=== PATIENT | female | born 1940 | race African-American/Black ===

== ENCOUNTER 2017-11-23 21:18 | Inpatient (IN) ==
--- NOTE | 2017-11-23 21:39 | ED ---
HPI General Chief complaint: Syncope Stated complaint: near syncope/evac Time Seen by Provider: 11/23/17 21:35 Source: patient, family and EMS Mode of arrival: EMS Limitations: no limitations History of Present Illness HPI narrative: The patient is a 76 year old female who presents to the [facility] emergency department with a history of not feeling well since yesterday. The patient reports having generalized weakness, urinary frequency, and urinary incontinence. She denies having any dysuria. She reports that she has had associated urinary urgency. According to ambulance services, the patient was out with her family eating dinner at a local restaurant when she developed a near syncopal event in the bathroom. The family thought that this may be related to a low blood sugar as she has not been eating well today, however she did have her dinner. They did provide orange juice and the patient's blood sugar was noted by ambulance services to be 209 prior to arrival. The patient was noted to be tachycardic with a pulse of 110. The patient had an odor of strong smelling urine about her. She denies having any one-sided weakness, numbness or tingling of her extremities. She denies having any vision changes, vertigo, or facial droop. On arrival, the patient's heart rate is in the 1 teens, the patient's temperature is noted to be 103. On review of systems otherwise, the patient denies having any cough, congestion, neck pain, chest pain, shortness of breath, abdominal pain, vomiting, diarrhea, or other neurologic symptoms. The patient reports that she last moved her bowels yesterday. She denies having any blood in her stool or black or tarry stools. Related Data Home Medications Medication Instructions Recorded Confirmed Unable to Obtain Home Meds 11/23/17 11/23/17 Previous Rx's Medication Instructions Recorded ciprofloxacin [Cipro] 250 mg PO BID 5 Days ml 11/25/17 Allergies Allergy/AdvReac Type Severity Reaction Status Date / Time No Known Allergies Allergy Verified 11/23/17 21:50 Review of Systems ROS: all other systems reviewed are negative (Except for that which was mentioned in the HPI.) PMF Family History Family History Other Diabetes mellitus Hypertension Social History Social History Substance History: No History of Abuse Second Hand Smoke Exposure: No Smoking Status: Never smoker How Often Do You Have a Drink Containing Alcohol: Never Recent Travel in [facility] within the Last 8 Weeks: No Recent Out of Country Travel within the Last 8 Weeks: No Exam Const General: cooperative, no acute distress and well developed Nutritional Appearance: well nourished Orientation: alert, awake and oriented x3 [facility] Head: normocephalic and atraumatic Nose: no nasal discharge and no epistaxis Mouth: moist mucous membranes Throat: posterior oropharynx normal and uvula midline Eyes Sclera: normal sclerae Pupils: PERRL Neck Neck: no meningeal signs, trachea midline and no JVD Resp Effort & Inspection: no use of accessory muscles Auscultation: clear to auscultation bilaterally Cardio Rate: tachycardic (Sinus tachycardia in the 1 teens. No pulse deficits to the extremities on simultaneous auscultation and palpation of her radial artery) Rhythm: regular rhythm Heart Sounds: no gallops, no murmurs and no rubs GI Inspection: non-distended Palpation: soft, no hepatosplenomegaly and nontender Auscultation: normal bowel sounds Back/Spine/Pelvis Back: no CVA tenderness Skin General: dry skin (warm) Neuro General: alert, awake, oriented x3 and CN's II-XI intact bilaterally Speech: speech normal Motor: strength not 5/5 throughout (Strength is 4/5 in all 4 extremities related to a generalized weakness.) and no movement abnormalities noted Sensory Exam: no sensory deficits noted Extrem General: normal to inspection (No calf tenderness on palpation. Negative Homans sign. No palpable cords. 2+ pulses in all 4 extremities.), no clubbing , no cyanosis and edema (Trace pedal edema bilaterally.) Laterality: bilaterally Psych Mood: congruent mood Affect: normal affect Judgment: judgment good Course Reevaluation(s) Reevaluation #1: The patient on reevaluation was resting comfortably and feeling improved. Consultations Consultation #1: The patient's case including history, pertinent physical examination findings, and laboratory studies were discussed with Dr. Norman. It was agreed that the patient would be admitted to the hospitalist service. Initial Documented Vital Signs Temperature 103.0 F H 11/23/17 21:39 Pulse Rate 117 H 11/23/17 21:39 Respiratory Rate 20 11/23/17 21:39 Blood Pressure 185/88 H 11/23/17 21:39 Pulse Oximetry 95 11/23/17 21:39 Last Documented Vital Signs Temperature 98.8 F 11/25/17 12:00 Pulse Rate 79 11/25/17 12:00 Respiratory Rate 16 11/25/17 12:00 Blood Pressure 136/68 11/25/17 12:00 Pulse Oximetry 99 11/25/17 12:00 Medical Decision Making MDM Narrative Medical decision making narrative: During the course of the patient's emergency department visit, the patient's history, examination, and differential diagnosis were reviewed with the patient. The patient was placed on a phototypesetting equipment monitor with oximetry and frequent blood pressure monitoring. The patient had IV access obtained and blood work sent for analysis. A diagnostic evaluation was started regarding this patient's febrile illness, near syncope, urinary symptoms. The patient was initially provided Tylenol for fever, normal saline IV fluids. The patient's diagnostic evaluation is remarkable for a white count of 10.9, neutrophil predominance at 80.9, platelets within normal limits, initial hemoglobin is 11., PT PTT unremarkable, chemistry is remarkable for a glucose of 260, chloride is 105, lactic acid is noted to be elevated at 2.4 suspicious for sepsis, troponin I is less than 0.02, urinalysis shows positive nitrite few mucus large leukocyte esterase cloudy urine rare bacteria. The patient was started on antibiotic, blood cultures 2 were drawn prior to antibiotic administration. The patient's results were discussed with the patient, including the plan of care. I explained that further testing and/ or monitoring is indicated based on the patient's history, examination, and/ or laboratory findings. Therefore, I recommended admission for additional evaluation. The patient expressed understanding and was agreeable with this plan. The patient was admitted to the hospital in guarded condition and sent to a bed under the care of the [facility] service. Differential Diagnosis Differential Diagnosis: Urosepsis, versus pyelonephritis, versus pneumonia, versus sepsis of undetermined cause Medical Records Medical records reviewed: Yes I reviewed the patient's medical records. Lab Data Lab results reviewed: Yes I reviewed the patient's lab results. Result diagrams: 11/25/17 04:11 11/25/17 09:05 Lab Results 11/23/17 11/23/17 11/23/17 Range/Units 22:00 22:00 22:00 WBC 10.9 (4.0-11.0) th/mm3 RBC 4.04 (4.00-5.30) mil/mm3 Hgb 11.0 L (11.6-15.3) gm/dL Hct 33.9 L (35.0-46.0) % MCV 83.9 (80.0-100.0) fL MCH 27.4 (27.0-34.0) pg MCHC 32.6 (32.0-36.0) % RDW 16.0 (11.6-17.2) % Plt Count 281 (150-450) th/mm3 MPV 9.0 (7.0-11.0) fL Neut % (Auto) 80.9 H (16.0-70.0) % Lymph % (Auto) 12.8 (9.0-44.0) % [place] % (Auto) 5.2 (0.0-8.0) % Eos % (Auto) 0.6 (0.0-4.0) % Baso % (Auto) 0.5 (0.0-2.0) % Neut # (Auto) 8.8 H (1.8-7.7) th/mm3 Lymph # (Auto) 1.4 (1.0-4.8) th/mm3 [place] # (Auto) 0.6 (0.0-0.9) th/mm3 Eos # (Auto) 0.1 (0.0-0.4) th/mm3 Baso # (Auto) 0.1 (0.0-0.2) th/mm3 WBC Differential . Differential Comment Auto diff final PT 10.3 (9.8-11.6) sec INR 1.0 Ratio APTT 23.8 L (24.3-30.1) sec Sodium 140 (136-145) meq/L Potassium 4.5 (3.5-5.1) meq/L Chloride 105 (98-107) meq/L Carbon Dioxide 24.7 (21.0-32.0) meq/L Anion Gap 10 (5-15) meq/L BUN 19 H (7-18) mg/dL Creatinine 1.12 H (0.50-1.00) mg/dL Estimated GFR 57 L (>89) mL/min POC Glucose (68-110) mg/dl Random Glucose 260 H (74-106) mg/dL Lactic Acid (0.4-2.0) mmol/L Calcium 10.2 H (8.5-10.1) mg/dL Magnesium 1.8 (1.5-2.5) mg/dL Total Bilirubin 0.7 (0.2-1.0) mg/dL AST 22 (15-37) U/L ALT 24 (10-53) U/L Alkaline Phosphatase 57 (45-117) U/L Total Creatine Kinase 64 (26-192) U/L Troponin I Less than 0.02 L (0.02-0.05) ng/mL Total Protein 8.0 (6.4-8.2) g/dL Albumin 3.9 (3.4-5.0) g/dL Urine Color (Yellw/Straw) Urine Clarity (Clear) Urine pH (5.0-8.5) Ur Specific [place] (1.002-1.035) Urine Protein (Neg-Trace) mg/dL Urine Glucose (UA) (Negative) mg/dL Urine Ketones (Negative) mg/dL Urine Occult Blood (Negative) Urine Nitrate (Negative) Urine Bilirubin (Negative) Urine Urobilinogen (Less than 2) mg/dL Ur Leukocyte Esterase (Negative) Urine RBC (0-3) /hpf Urine WBC (0-5) /hpf Ur Squamous Epith Cells (0-5) /hpf Urine Bacteria (None) /hpf Urine Mucus (Occasional) /lpf Micro UA Comment Urine Culture Comments 11/23/17 11/23/17 11/24/17 Range/Units 22:25 22:45 00:24 WBC (4.0-11.0) th/mm3 RBC (4.00-5.30) mil/mm3 Hgb (11.6-15.3) gm/dL Hct (35.0-46.0) % MCV (80.0-100.0) fL MCH (27.0-34.0) pg MCHC (32.0-36.0) % RDW (11.6-17.2) % Plt Count (150-450) th/mm3 MPV (7.0-11.0) fL Neut % (Auto) (16.0-70.0) % Lymph % (Auto) (9.0-44.0) % [place] % (Auto) (0.0-8.0) % Eos % (Auto) (0.0-4.0) % Baso % (Auto) (0.0-2.0) % Neut # (Auto) (1.8-7.7) th/mm3 Lymph # (Auto) (1.0-4.8) th/mm3 [place] # (Auto) (0.0-0.9) th/mm3 Eos # (Auto) (0.0-0.4) th/mm3 Baso # (Auto) (0.0-0.2) th/mm3 WBC Differential Differential Comment PT (9.8-11.6) sec INR Ratio APTT (24.3-30.1) sec Sodium (136-145) meq/L Potassium (3.5-5.1) meq/L Chloride (98-107) meq/L Carbon Dioxide (21.0-32.0) meq/L Anion Gap (5-15) meq/L BUN (7-18) mg/dL Creatinine (0.50-1.00) mg/dL Estimated GFR (>89) mL/min POC Glucose 195 H (68-110) mg/dl Random Glucose (74-106) mg/dL Lactic Acid 2.4 H (0.4-2.0) mmol/L Calcium (8.5-10.1) mg/dL Magnesium (1.5-2.5) mg/dL Total Bilirubin (0.2-1.0) mg/dL AST (15-37) U/L ALT (10-53) U/L Alkaline Phosphatase (45-117) U/L Total Creatine Kinase (26-192) U/L Troponin I (0.02-0.05) ng/mL Total Protein (6.4-8.2) g/dL Albumin (3.4-5.0) g/dL Urine Color Yellow (Yellw/Straw) Urine Clarity Cloudy H (Clear) Urine pH 6.0 (5.0-8.5) Ur Specific [place] 1.009 (1.002-1.035) Urine Protein 30 H (Neg-Trace) mg/dL Urine Glucose (UA) 500 or greater (Negative) mg/dL Urine Ketones Negative (Negative) mg/dL Urine Occult Blood Small H (Negative) Urine Nitrate Positive H (Negative) Urine Bilirubin Negative (Negative) Urine Urobilinogen Less than 2 (Less than 2) mg/dL Ur Leukocyte Esterase Large H (Negative) Urine RBC 1 (0-3) /hpf Urine WBC 92 H (0-5) /hpf Ur Squamous Epith Cells <1 (0-5) /hpf Urine Bacteria Rare H (None) /hpf Urine Mucus Few H (Occasional) /lpf Micro UA Comment Culture indicated Urine Culture Comments Culture indicated 11/24/17 11/24/17 11/24/17 Range/Units 01:47 02:45 08:34 WBC (4.0-11.0) th/mm3 RBC (4.00-5.30) mil/mm3 Hgb (11.6-15.3) gm/dL Hct (35.0-46.0) % MCV (80.0-100.0) fL MCH (27.0-34.0) pg MCHC (32.0-36.0) % RDW (11.6-17.2) % Plt Count (150-450) th/mm3 MPV (7.0-11.0) fL Neut % (Auto) (16.0-70.0) % Lymph % (Auto) (9.0-44.0) % [place] % (Auto) (0.0-8.0) % Eos % (Auto) (0.0-4.0) % Baso % (Auto) (0.0-2.0) % Neut # (Auto) (1.8-7.7) th/mm3 Lymph # (Auto) (1.0-4.8) th/mm3 [place] # (Auto) (0.0-0.9) th/mm3 Eos # (Auto) (0.0-0.4) th/mm3 Baso # (Auto) (0.0-0.2) th/mm3 WBC Differential Differential Comment PT (9.8-11.6) sec INR Ratio APTT (24.3-30.1) sec Sodium (136-145) meq/L Potassium (3.5-5.1) meq/L Chloride (98-107) meq/L Carbon Dioxide (21.0-32.0) meq/L Anion Gap (5-15) meq/L BUN (7-18) mg/dL Creatinine (0.50-1.00) mg/dL Estimated GFR (>89) mL/min POC Glucose 178 H 182 H (68-110) mg/dl Random Glucose (74-106) mg/dL Lactic Acid 0.9 (0.4-2.0) mmol/L Calcium (8.5-10.1) mg/dL Magnesium (1.5-2.5) mg/dL Total Bilirubin (0.2-1.0) mg/dL AST (15-37) U/L ALT (10-53) U/L Alkaline Phosphatase (45-117) U/L Total Creatine Kinase (26-192) U/L Troponin I (0.02-0.05) ng/mL Total Protein (6.4-8.2) g/dL Albumin (3.4-5.0) g/dL Urine Color (Yellw/Straw) Urine Clarity (Clear) Urine pH (5.0-8.5) Ur Specific [place] (1.002-1.035) Urine Protein (Neg-Trace) mg/dL Urine Glucose (UA) (Negative) mg/dL Urine Ketones (Negative) mg/dL Urine Occult Blood (Negative) Urine Nitrate (Negative) Urine Bilirubin (Negative) Urine Urobilinogen (Less than 2) mg/dL Ur Leukocyte Esterase (Negative) Urine RBC (0-3) /hpf Urine WBC (0-5) /hpf Ur Squamous Epith Cells (0-5) /hpf Urine Bacteria (None) /hpf Urine Mucus (Occasional) /lpf Micro UA Comment Urine Culture Comments 11/24/17 11/24/17 11/24/17 Range/Units 12:42 18:10 21:17 WBC (4.0-11.0) th/mm3 RBC (4.00-5.30) mil/mm3 Hgb (11.6-15.3) gm/dL Hct (35.0-46.0) % MCV (80.0-100.0) fL MCH (27.0-34.0) pg MCHC (32.0-36.0) % RDW (11.6-17.2) % Plt Count (150-450) th/mm3 MPV (7.0-11.0) fL Neut % (Auto) (16.0-70.0) % Lymph % (Auto) (9.0-44.0) % [place] % (Auto) (0.0-8.0) % Eos % (Auto) (0.0-4.0) % Baso % (Auto) (0.0-2.0) % Neut # (Auto) (1.8-7.7) th/mm3 Lymph # (Auto) (1.0-4.8) th/mm3 [place] # (Auto) (0.0-0.9) th/mm3 Eos # (Auto) (0.0-0.4) th/mm3 Baso # (Auto) (0.0-0.2) th/mm3 WBC Differential Differential Comment PT (9.8-11.6) sec INR Ratio APTT (24.3-30.1) sec Sodium (136-145) meq/L Potassium (3.5-5.1) meq/L Chloride (98-107) meq/L Carbon Dioxide (21.0-32.0) meq/L Anion Gap (5-15) meq/L BUN (7-18) mg/dL Creatinine (0.50-1.00) mg/dL Estimated GFR (>89) mL/min POC Glucose 214 H 145 H 169 H (68-110) mg/dl Random Glucose (74-106) mg/dL Lactic Acid (0.4-2.0) mmol/L Calcium (8.5-10.1) mg/dL Magnesium (1.5-2.5) mg/dL Total Bilirubin (0.2-1.0) mg/dL AST (15-37) U/L ALT (10-53) U/L Alkaline Phosphatase (45-117) U/L Total Creatine Kinase (26-192) U/L Troponin I (0.02-0.05) ng/mL Total Protein (6.4-8.2) g/dL Albumin (3.4-5.0) g/dL Urine Color (Yellw/Straw) Urine Clarity (Clear) Urine pH (5.0-8.5) Ur Specific [place] (1.002-1.035) Urine Protein (Neg-Trace) mg/dL Urine Glucose (UA) (Negative) mg/dL Urine Ketones (Negative) mg/dL Urine Occult Blood (Negative) Urine Nitrate (Negative) Urine Bilirubin (Negative) Urine Urobilinogen (Less than 2) mg/dL Ur Leukocyte Esterase (Negative) Urine RBC (0-3) /hpf Urine WBC (0-5) /hpf Ur Squamous Epith Cells (0-5) /hpf Urine Bacteria (None) /hpf Urine Mucus (Occasional) /lpf Micro UA Comment Urine Culture Comments 11/25/17 11/25/17 11/25/17 Range/Units 04:11 05:17 08:27 WBC 7.9 (4.0-11.0) th/mm3 RBC 3.68 L (4.00-5.30) mil/mm3 Hgb 10.1 L (11.6-15.3) gm/dL Hct 30.4 L (35.0-46.0) % MCV 82.6 (80.0-100.0) fL MCH 27.5 (27.0-34.0) pg MCHC 33.3 (32.0-36.0) % RDW 15.7 (11.6-17.2) % Plt Count 231 (150-450) th/mm3 MPV 8.4 (7.0-11.0) fL Neut % (Auto) 59.2 (16.0-70.0) % Lymph % (Auto) 30.0 (9.0-44.0) % [place] % (Auto) 8.5 H (0.0-8.0) % Eos % (Auto) 2.0 (0.0-4.0) % Baso % (Auto) 0.3 (0.0-2.0) % Neut # (Auto) 4.7 (1.8-7.7) th/mm3 Lymph # (Auto) 2.4 (1.0-4.8) th/mm3 [place] # (Auto) 0.7 (0.0-0.9) th/mm3 Eos # (Auto) 0.2 (0.0-0.4) th/mm3 Baso # (Auto) 0.0 (0.0-0.2) th/mm3 WBC Differential . Differential Comment Auto diff final PT (9.8-11.6) sec INR Ratio APTT (24.3-30.1) sec Sodium (136-145) meq/L Potassium (3.5-5.1) meq/L Chloride (98-107) meq/L Carbon Dioxide (21.0-32.0) meq/L Anion Gap (5-15) meq/L BUN (7-18) mg/dL Creatinine (0.50-1.00) mg/dL Estimated GFR (>89) mL/min POC Glucose 124 H 199 H (68-110) mg/dl Random Glucose (74-106) mg/dL Lactic Acid (0.4-2.0) mmol/L Calcium (8.5-10.1) mg/dL Magnesium (1.5-2.5) mg/dL Total Bilirubin (0.2-1.0) mg/dL AST (15-37) U/L ALT (10-53) U/L Alkaline Phosphatase (45-117) U/L Total Creatine Kinase (26-192) U/L Troponin I (0.02-0.05) ng/mL Total Protein (6.4-8.2) g/dL Albumin (3.4-5.0) g/dL Urine Color (Yellw/Straw) Urine Clarity (Clear) Urine pH (5.0-8.5) Ur Specific [place] (1.002-1.035) Urine Protein (Neg-Trace) mg/dL Urine Glucose (UA) (Negative) mg/dL Urine Ketones (Negative) mg/dL Urine Occult Blood (Negative) Urine Nitrate (Negative) Urine Bilirubin (Negative) Urine Urobilinogen (Less than 2) mg/dL Ur Leukocyte Esterase (Negative) Urine RBC (0-3) /hpf Urine WBC (0-5) /hpf Ur Squamous Epith Cells (0-5) /hpf Urine Bacteria (None) /hpf Urine Mucus (Occasional) /lpf Micro UA Comment Urine Culture Comments 11/25/17 Range/Units 09:05 WBC (4.0-11.0) th/mm3 RBC (4.00-5.30) mil/mm3 Hgb (11.6-15.3) gm/dL Hct (35.0-46.0) % MCV (80.0-100.0) fL MCH (27.0-34.0) pg MCHC (32.0-36.0) % RDW (11.6-17.2) % Plt Count (150-450) th/mm3 MPV (7.0-11.0) fL Neut % (Auto) (16.0-70.0) % Lymph % (Auto) (9.0-44.0) % [place] % (Auto) (0.0-8.0) % Eos % (Auto) (0.0-4.0) % Baso % (Auto) (0.0-2.0) % Neut # (Auto) (1.8-7.7) th/mm3 Lymph # (Auto) (1.0-4.8) th/mm3 [place] # (Auto) (0.0-0.9) th/mm3 Eos # (Auto) (0.0-0.4) th/mm3 Baso # (Auto) (0.0-0.2) th/mm3 WBC Differential Differential Comment PT (9.8-11.6) sec INR Ratio APTT (24.3-30.1) sec Sodium 141 (136-145) meq/L Potassium 3.8 (3.5-5.1) meq/L Chloride 110 H (98-107) meq/L Carbon Dioxide 24.1 (21.0-32.0) meq/L Anion Gap 7 (5-15) meq/L BUN 9 (7-18) mg/dL Creatinine 0.66 (0.50-1.00) mg/dL Estimated GFR Greater than 89 (>89) mL/min POC Glucose (68-110) mg/dl Random Glucose 151 H D (74-106) mg/dL Lactic Acid (0.4-2.0) mmol/L Calcium 9.6 (8.5-10.1) mg/dL Magnesium (1.5-2.5) mg/dL Total Bilirubin (0.2-1.0) mg/dL AST (15-37) U/L ALT (10-53) U/L Alkaline Phosphatase (45-117) U/L Total Creatine Kinase (26-192) U/L Troponin I (0.02-0.05) ng/mL Total Protein (6.4-8.2) g/dL Albumin (3.4-5.0) g/dL Urine Color ([place]ell[place]/Straw) Urine Clarity (Clear) Urine pH (5.0-8.5) Ur Specific [place] (1.002-1.035) Urine Protein (Neg-Trace) mg/dL Urine Glucose (UA) (Negative) mg/dL Urine Ketones (Negative) mg/dL Urine Occult Blood (Negative) Urine Nitrate (Negative) Urine Bilirubin (Negative) Urine Urobilinogen (Less than 2) mg/dL Ur Leukocyte Esterase (Negative) Urine RBC (0-3) /hpf Urine WBC (0-5) /hpf Ur Squamous Epith Cells (0-5) /hpf Urine Bacteria (None) /hpf Urine Mucus (Occasional) /lpf Micro UA Comment Urine Culture Comments Imaging Data Radiologist's impression: Chest X-Ray 11/23/17 21:48 CONCLUSION: No acute cardiopulmonary disease identified. ECG Data Attestation: I personally reviewed and interpreted this ECG as follows: Interpretation: The patient had a EKG done on arrival. The patient's EKG shows a sinus tachycardia rate of 115, QRS duration 87 ms, QTC [address] -T wave abnormalities are noted, T waves are inverted in lead I, 2, 3, aVF, V4, V5, V6. Discharge Plan Discharge Disposition Patient Disposition: 30 Still Patient Discharge Condition Condition: Stable Discharge Order Discharge Orders: Discharge Order (Routine); Ordered 11/25/17 Ordered By: Kiki Martin Discharge Details Diagnosis: Near syncope, Acute pyelonephritis Physicians Team ED Provider: Padmini Diaz Attending Provider: Kiki Martin Status ED Status: Left Department Discharge Information Discharge Date/Time: 11/24/17 00:58
[2017-11-23] MEDS ORDERED: Acetaminophen 325 MG Tablet PO ONE (21:47)
[2017-11-23] MEDS ORDERED: Sod Chloride 0.9% Inj 1,000 ML IV.SIG ONE (21:47)
--- NOTE | 2017-11-23 22:11 | XR ---
EXAM DATE: 11/23/2017 10:08 PM EDT AGE/SEX: 76 years / Female INDICATIONS: Fever. Short of breath. CLINICAL DATA: This is the patient's initial encounter. Patient reports that signs and symptoms have been present for 1 day and indicates a pain score of 0/10. MEDICAL/SURGICAL HISTORY: None. None. COMPARISON: No prior exams available for comparison. FINDINGS: Single AP view of the chest. The lungs are clear. Cardiomediastinal silhouette within norm al limits. No evidence of pleural effusion or pneumothorax. CONCLUSION: No acute cardiopulmonary disease identified. Electronically signed by: Pedro Owen MD 11/23/2017 10:10 PM EDT
[2017-11-23 22:22] LABS: Baso # (Auto) 0.1 th/mm3 (0.0-0.2); Baso % (Auto) 0.5 % (0.0-2.0); Eos # (Auto) 0.1 th/mm3 (0.0-0.4); Eos % (Auto) 0.6 % (0.0-4.0); Hematocrit 33.9 % (35.0-46.0); Lymph # (Auto) 1.4 th/mm3 (1.0-4.8); Lymph % (Auto) 12.8 % (9.0-44.0); Mean Corpuscular HGB Conc 32.6 % (32.0-36.0); Mean Corpuscular Hemoglobin 27.4 pg (27.0-34.0); Mean Corpuscular Volume 83.9 fL (80.0-100.0); Mono # (Auto) 0.6 th/mm3 (0.0-0.9); Mono % (Auto) 5.2 % (0.0-8.0); Neut # (Auto) 8.8 th/mm3 (1.8-7.7); Neut % (Auto) 80.9 % (16.0-70.0); Platelet Count 281 th/mm3 (150-450); Red Blood Count 4.04 mil/mm3 (4.00-5.30); White Blood Count 10.9 th/mm3 (4.0-11.0)
[2017-11-23 22:31] LABS: Activated Partial Thrombo Time 23.8 sec (24.3-30.1); Prothrombin Time 10.3 sec (9.8-11.6)
[2017-11-23 22:44] LABS: Bacteria,Urine Rare /hpf; Bilirubin,Urine Negative (Negative); Clarity,Urine Cloudy (Clear); Color,Urine Yellow (Yellw/Straw); Glucose,Urine (UA) 500 or Greater mg/dL (Negative); Leukocyte Esterase,Urine Large (Negative); Mucus,Urine Few /lpf (Occasional); Nitrite,Urine Positive (Negative); Specific Gravity,Urine 1.009 (1.002-1.035); Squamous Epithelial Cell,Urine <1 /hpf (0-5)
[2017-11-23 22:44] LABS: Alanine Aminotransferase 24 U/L (10-53)
[2017-11-23 22:58] LABS: Albumin 3.9 g/dL (3.4-5.0); Alkaline Phosphatase 57 U/L (45-117); Anion Gap 10 meq/L (5-15); Aspartate Aminotransferase 22 U/L (15-37); Blood Urea Nitrogen 19 mg/dL (7-18); Calcium 10.2 mg/dL (8.5-10.1); Carbon Dioxide 24.7 meq/L (21.0-32.0); Chloride 105 meq/L (98-107); Glomerular Filtration Rate 57 mL/min (>89); Glucose,Random 260 mg/dL (74-106); Magnesium 1.8 mg/dL (1.5-2.5); Potassium 4.5 meq/L (3.5-5.1); Sodium 140 meq/L (136-145)
[2017-11-23 23:00] LABS: Creatine Kinase 64 U/L (26-192)
[2017-11-23] MEDS ORDERED: Sodium Chlor 0.9% Inj 500 ML IV.SIG ONE (23:04)
[2017-11-24] MEDS ORDERED: Dextrose 50% in Water 50 ML Vial IV.PUSH PRN (00:05)
[2017-11-24] MEDS ORDERED: Temazepam 15 MG Capsule PO PRN (00:06)
[2017-11-24] MEDS ORDERED: Bisacodyl 10 MG Supp RECTAL PRN (00:06)
--- NOTE | 2017-11-24 00:15 | P.HP ---
History of Present Illness Service: [facility] Primary Care Physician: Robin Mcginnis History of Present Illness: 76-year-old female with a past medical history significant for diabetes mellitus and hypertension presents to the emergency department for the evaluation of a presyncopal episode. The patient's daughter reports that she was in the restroom with the patient when she became lightheaded and fell forward requiring support from her daughter. She denies any loss of consciousness. On arrival to the emergency department the patient was found to have a temperature of 3.0, pulse 117, BP 185/88, pulse ox 95% on room air. The patient's son reports that she has been feeling drowsy and fatigued since Friday. She has been resting more than normal and has not been her usual self. UA consistent with urinary tract infection. Inpatient Certification: I certify that the inpatient services were ordered in accordance with Medicare regulations governing the order. This includes certification that hospital inpatient services are reasonable and necessary and in the case of services not specified as inpatient-only under 42 CFR 419.22(n), that they are appropriately provided as inpatient services in accordance to with the 2-midnight benchmark under 43 CFR 412.3(e) Estimated Total Length of Stay (Days): 2 Plans for Post Hospital Care: Not yet determined Review of Systems Denies blurry vision, otorrhea, rhinorrhea Denies sore throat and cough No chest pain, palpitations No shortness of breath or wheezing No abdominal pain Denies constipation/diarrhea/nausea/vomiting Denies muscle pain Denies focal weakness No rashes All other systems reviewed negative except as stated in HPI [facility] - History History Provided By: Patient, Family Member, [employer]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 - Medical History Medical History: Medical History (Last Updated 11/23/17 @ 21:44 by Radha Hassan) Cervical vertebral fusion Diabetes HTN (hypertension) - Surgical History Surgical History: Surgical History (Last Updated 11/24/17 @ 00:10 by Susan Norman MD) History of cataract surgery History of spinal fusion - Family History Family History: Family History (Last Updated 11/24/17 @ 00:11 by Susan Norman MD) Other Diabetes mellitus Hypertension - Tobacco History Smoking Status: Never smoker - Alcohol History How Often Do You Have a Drink Containing Alcohol: Never - Substance Use History Substance History: No History of Abuse - Travel History Recent Travel in the [facility] Within the Last 8 Weeks: No Recent Travel Out of the Country Within the Last 8 Weeks: No - Immunization History Tetanus Immunization: <5 Years Hx Influenza Vaccine This Season: Yes Medications and Allergies Allergies Allergy/AdvReac Type Severity Reaction Status Date / Time No Known Allergies Allergy Verified 11/23/17 21:50 Home Medications Medication Instructions Recorded Confirmed Type Unable to Obtain Home Meds 11/23/17 11/23/17 History Exam Vital signs: Vital Signs 11/23/17 21:39 11/23/17 22:33 11/23/17 22:47 Temperature 103.0 F H 102.1 F H Pulse Rate 117 H 115 H Respiratory Rate 20 Blood Pressure 185/88 H Pulse Oximetry 95 96 11/23/17 23:47 Temperature 99.8 F H Pulse Rate 92 H Respiratory Rate 22 Blood Pressure 175/74 H Pulse Oximetry 96 Intake & Output 11/23/17 11/23/17 11/24/17 06:59 18:59 06:59 Weight 68.039 kg Narrative: Gen.: No acute distress Head: Normocephalic. Atraumatic. EENT: Pupils equal round and reactive to light. Nose without drainage. Airway intact. Throat without injection. Cardiovascular: Regular rate and rhythm. No murmurs, rubs or gallops. Respiratory: Lungs clear to auscultation bilaterally. No wheezes or rhonchi. Abdomen: Soft, nontender, nondistended. No peritoneal signs. Musculoskeletal: No gross deformities. No edema. Skin: No obvious rashes or erythema. Neuro: Sensory and motor grossly intact. Cranial nerves II through XII grossly intact. Results - Labs CBC & Chem 7: 11/23/17 22:00 11/23/17 22:00 Labs: Laboratory Results - last 24 hr 11/23/17 11/23/17 11/23/17 22:00 22:00 22:00 WBC 10.9 RBC 4.04 Hgb 11.0 L Hct 33.9 L MCV 83.9 MCH 27.4 MCHC 32.6 RDW 16.0 Plt Count 281 MPV 9.0 Neut % (Auto) 80.9 H Lymph % (Auto) 12.8 [place] % (Auto) 5.2 Eos % (Auto) 0.6 Baso % (Auto) 0.5 Neut # (Auto) 8.8 H Lymph # (Auto) 1.4 [place] # (Auto) 0.6 Eos # (Auto) 0.1 Baso # (Auto) 0.1 WBC Differential . Differential Comment Auto diff final PT 10.3 INR 1.0 APTT 23.8 L Sodium 140 Potassium 4.5 Chloride 105 Carbon Dioxide 24.7 Anion Gap 10 BUN 19 H Creatinine 1.12 H Estimated GFR 57 L Random Glucose 260 H Lactic Acid Calcium 10.2 H Magnesium 1.8 Total Bilirubin 0.7 AST 22 ALT 24 Alkaline Phosphatase 57 Total Creatine Kinase 64 Troponin I Less than 0.02 L Total Protein 8.0 Albumin 3.9 Urine Color Urine Clarity Urine pH Ur Specific [place] Urine Protein Urine Glucose (UA) Urine Ketones Urine Occult Blood Urine Nitrate Urine Bilirubin Urine Urobilinogen Ur Leukocyte Esterase Urine RBC Urine WBC Ur Squamous Epith Cells Urine Bacteria Urine Mucus Micro UA Comment Urine Culture Comments 11/23/17 11/23/17 22:25 22:45 WBC RBC Hgb Hct MCV MCH MCHC RDW Plt Count MPV Neut % (Auto) Lymph % (Auto) [place] % (Auto) Eos % (Auto) Baso % (Auto) Neut # (Auto) Lymph # (Auto) [place] # (Auto) Eos # (Auto) Baso # (Auto) WBC Differential Differential Comment PT INR APTT Sodium Potassium Chloride Carbon Dioxide Anion Gap BUN Creatinine Estimated GFR Random Glucose Lactic Acid 2.4 H Calcium Magnesium Total Bilirubin AST ALT Alkaline Phosphatase Total Creatine Kinase Troponin I Total Protein Albumin Urine Color Yellow Urine Clarity Cloudy H Urine pH 6.0 Ur Specific [place] 1.009 Urine Protein 30 H Urine Glucose (UA) 500 or greater Urine Ketones Negative Urine Occult Blood Small H Urine Nitrate Positive H Urine Bilirubin Negative Urine Urobilinogen Less than 2 Ur Leukocyte Esterase Large H Urine RBC 1 Urine WBC 92 H Ur Squamous Epith Cells <1 Urine Bacteria Rare H Urine Mucus Few H Micro UA Comment Culture indicated Urine Culture Comments Culture indicated - Imaging Impressions Chest X-Ray 11/23/17 21:48 CONCLUSION: No acute cardiopulmonary disease identified. Caprini VTE Risk Assessment Caprini VTE Risk Assessment: Moderate/High Risk (score >= 2) Caprini Risk Assessment Model: Point Value = 1 Point Value = 2 Point Value = 3 Point Value = 5 Age 41-60 Minor surgery BMI > 25 kg/m2 Swollen legs Varicose veins or History of unexplained or recurrent spontaneous Oral contraceptives or hormone replacement Sepsis (< 1 month) Serious lung disease, including pneumonia (< 1 month) Abnormal pulmonary function Acute myocardial infarction Congestive heart failure (< 1 month) History of inflammatory bowel disease Medical patient at bed rest Age 61-74 Arthroscopic surgery Major open surgery (> 45 min) Laparoscopic surgery (> 45 min) Malignancy Confined to bed (> 72 hours) Immobilizing plaster cast Central venous access Age >= 75 History of VTE Family history of VTE Factor V Leiden Prothrombin [id number] Lupus anticoagulant Anticardiolipin antibodies Elevated serum homocysteine Heparin-induced thrombocytopenia Other congenital or acquired thrombophilia Stroke (< 1 month) Elective arthroplasty Hip, pelvis, or leg fracture Acute spinal cord injury (< 1 month) Prophylaxis Regimen: Total Risk Factor Score Risk Level Prophylaxis Regimen 0-1 Low Early ambulation 2 Moderate Order ONE of the following: *Sequential Compression Device (SCD) *Heparin 5000 units SQ BID 3-4 Higher Order ONE of the following medications: *Heparin 5000 units SQ TID *Enoxaparin/Lovenox 40 mg SQ daily (WT < 150 kg, CrCl > 30 mL/min) *Enoxaparin/Lovenox 30 mg SQ daily (WT < 150 kg, CrCl > 10-29 mL/min) *Enoxaparin/Lovenox 30 mg SQ BID (WT < 150 kg, CrCl > 30 mL/min) AND/OR *Sequential Compression Device (SCD) 5 or more Highest Order ONE of the following medications: *Heparin 5000 units SQ TID (Preferred with Epidurals) *Enoxaparin/Lovenox 40 mg SQ daily (WT < 150 kg, CrCl > 30 mL/min) *Enoxaparin/Lovenox 30 mg SQ daily (WT < 150 kg, CrCl > 10-29 mL/min) *Enoxaparin/Lovenox 30 mg SQ BID (WT < 150 kg, CrCl > 30 mL/min) AND *Sequential Compression Device (SCD) Assessment and Plan - Plan Assessment/plan: 1. Urosepsis Fever, tachycardia, elevated lactic acid UA consistent with urinary tract infection Urine/blood cultures pending Rocephin Tailor antibiotics once cultures result IV fluid hydration Repeat lactic acid pending 2. Diabetes mellitus Unable to obtain patient's home medications Sliding-scale insulin Monitor blood glucose 3. Hypertension Restart home medications Clonidine as needed FEN Diabetic diet Electrolytes: Monitor and replete as needed NS at 100 cc/hour Heparin
[2017-11-24] MEDS: Sod Chloride 0.9% Inj 1,000 ML IV.CONT SCH ×2 (00:28→16:35)
[2017-11-24] MEDS: Acetaminophen 325 MG Tablet PO PRN (01:18)
[2017-11-24] MEDS: Insulin NovoLIN Regular Correctional Sugar Inj SQ SCH ×4 (03:11→21:29)
[2017-11-24] MEDS: Senna/Docusate Sodium 8.6/50 MG Tablet PO SCH ×2 (08:50→21:03)
[2017-11-24] MEDS: Heparin - SQ 10,000 UNITS/ML Vial SQ SCH ×2 (08:50→21:02)
--- NOTE | 2017-11-24 10:04 | P.PNIM ---
Subjective Interval history: f/u; urosepsis sitting on the chair with no distress and looks comfortable. says that she's feeling better today but has some back pain. Tmax 103. Physical Exam Vital signs: Vital Signs 11/23/17 21:39 11/23/17 22:33 11/23/17 22:47 Temperature 103.0 F H 102.1 F H Pulse Rate 117 H 115 H Respiratory Rate 20 Blood Pressure 185/88 H Pulse Oximetry 95 96 11/23/17 23:47 11/24/17 00:50 11/24/17 04:00 Temperature 99.8 F H 102.3 F H 99.4 F Pulse Rate 92 H 116 H 94 H Respiratory Rate 22 19 18 Blood Pressure 175/74 H 174/73 H 114/58 L Pulse Oximetry 96 96 98 11/24/17 08:00 11/24/17 09:10 Temperature 98.5 F Pulse Rate 74 Respiratory Rate 18 Blood Pressure 127/61 Pulse Oximetry 97 97 Intake & Output 11/23/17 11/24/17 11/24/17 18:59 06:59 18:59 Weight 54.4 kg Other: # Voids 4 Date of Last Bowel Movement 11/22/17 Weight On Admission 54.431 kg - Constitutional no acute distress - Routine Respiratory Exam Present: CTA bilaterally - Routine Cardiovascular Exam Present: RRR - Routine Abdominal Exam Present: soft - Routine Extremities Exam Comments: no pedal edema. - Routine Neurological Exam Present: alert, oriented X3 Results - Labs CBC & Chem 7: 11/23/17 22:00 11/23/17 22:00 Laboratory Results - last 24 hr 11/23/17 11/23/17 11/23/17 22:00 22:00 22:00 WBC 10.9 RBC 4.04 Hgb 11.0 L Hct 33.9 L MCV 83.9 MCH 27.4 MCHC 32.6 RDW 16.0 Plt Count 281 MPV 9.0 Neut % (Auto) 80.9 H Lymph % (Auto) 12.8 [place] % (Auto) 5.2 Eos % (Auto) 0.6 Baso % (Auto) 0.5 Neut # (Auto) 8.8 H Lymph # (Auto) 1.4 [place] # (Auto) 0.6 Eos # (Auto) 0.1 Baso # (Auto) 0.1 WBC Differential . Differential Comment Auto diff final PT 10.3 INR 1.0 APTT 23.8 L Sodium 140 Potassium 4.5 Chloride 105 Carbon Dioxide 24.7 Anion Gap 10 BUN 19 H Creatinine 1.12 H Estimated GFR 57 L POC Glucose Random Glucose 260 H Lactic Acid Calcium 10.2 H Magnesium 1.8 Total Bilirubin 0.7 AST 22 ALT 24 Alkaline Phosphatase 57 Total Creatine Kinase 64 Troponin I Less than 0.02 L Total Protein 8.0 Albumin 3.9 Urine Color Urine Clarity Urine pH Ur Specific [place] Urine Protein Urine Glucose (UA) Urine Ketones Urine Occult Blood Urine Nitrate Urine Bilirubin Urine Urobilinogen Ur Leukocyte Esterase Urine RBC Urine WBC Ur Squamous Epith Cells Urine Bacteria Urine Mucus Micro UA Comment Urine Culture Comments 11/23/17 11/23/17 11/24/17 22:25 22:45 00:24 WBC RBC Hgb Hct MCV MCH MCHC RDW Plt Count MPV Neut % (Auto) Lymph % (Auto) [place] % (Auto) Eos % (Auto) Baso % (Auto) Neut # (Auto) Lymph # (Auto) [place] # (Auto) Eos # (Auto) Baso # (Auto) WBC Differential Differential Comment PT INR APTT Sodium Potassium Chloride Carbon Dioxide Anion Gap BUN Creatinine Estimated GFR POC Glucose 195 H Random Glucose Lactic Acid 2.4 H Calcium Magnesium Total Bilirubin AST ALT Alkaline Phosphatase Total Creatine Kinase Troponin I Total Protein Albumin Urine Color Yellow Urine Clarity Cloudy H Urine pH 6.0 Ur Specific [place] 1.009 Urine Protein 30 H Urine Glucose (UA) 500 or greater Urine Ketones Negative Urine Occult Blood Small H Urine Nitrate Positive H Urine Bilirubin Negative Urine Urobilinogen Less than 2 Ur Leukocyte Esterase Large H Urine RBC 1 Urine WBC 92 H Ur Squamous Epith Cells <1 Urine Bacteria Rare H Urine Mucus Few H Micro UA Comment Culture indicated Urine Culture Comments Culture indicated 11/24/17 11/24/17 11/24/17 01:47 02:45 08:34 WBC RBC Hgb Hct MCV MCH MCHC RDW Plt Count MPV Neut % (Auto) Lymph % (Auto) [place] % (Auto) Eos % (Auto) Baso % (Auto) Neut # (Auto) Lymph # (Auto) [place] # (Auto) Eos # (Auto) Baso # (Auto) WBC Differential Differential Comment PT INR APTT Sodium Potassium Chloride Carbon Dioxide Anion Gap BUN Creatinine Estimated GFR POC Glucose 178 H 182 H Random Glucose Lactic Acid 0.9 Calcium Magnesium Total Bilirubin AST ALT Alkaline Phosphatase Total Creatine Kinase Troponin I Total Protein Albumin Urine Color Urine Clarity Urine pH Ur Specific [place] Urine Protein Urine Glucose (UA) Urine Ketones Urine Occult Blood Urine Nitrate Urine Bilirubin Urine Urobilinogen Ur Leukocyte Esterase Urine RBC Urine WBC Ur Squamous Epith Cells Urine Bacteria Urine Mucus Micro UA Comment Urine Culture Comments - Imaging Impressions Chest X-Ray 11/23/17 21:48 CONCLUSION: No acute cardiopulmonary disease identified. Assessment and Plan - Plan 1. sepsis due to UTI. Fever, tachycardia, elevated lactic acid UA consistent with urinary tract infection Urine/blood cultures pending continue IV Rocephin Tailor antibiotics once cultures resulted IV fluid hydration 2. Diabetes mellitus Sliding-scale insulin Monitor blood glucose 3. Hypertension Restart home medications once the home medications verified. Clonidine as needed Discharge Planning: within the next 24-48 hrs if stable,afebrile- pending the cultures.
--- NOTE | 2017-11-24 15:59 | ECG ---
Date Performed: 11/23/2017 Time Performed: 21:28:48 PTAGE: 76 years EKG: SINUS TACHYCARDIA MODERATE T-WAVE ABNORMALITY, CONSIDER LATERAL ISCHEMIA MODERATE T-WAVE AB NORMALITY, CONSIDER INFERIOR ISCHEMIA ABNORMAL ECG NO PREVIOUS TRACING DOCTOR: Randy Soliz Interpretating Date/Time 11/24/2017 15:58:32
[2017-11-25] MEDS: Insulin NovoLIN Regular Correctional Sugar Inj SQ SCH ×4 (04:30→18:09)
[2017-11-25] MEDS: Acetaminophen 325 MG Tablet PO PRN (05:11)
[2017-11-25 06:05] LABS: Baso % (Auto) 0.3 % (0.0-2.0); Eos # (Auto) 0.2 th/mm3 (0.0-0.4); Hematocrit 30.4 % (35.0-46.0); Hemoglobin 10.1 gm/dL (11.6-15.3); Lymph # (Auto) 2.4 th/mm3 (1.0-4.8); Mean Corpuscular HGB Conc 33.3 % (32.0-36.0); Mean Corpuscular Hemoglobin 27.5 pg (27.0-34.0); Mean Corpuscular Volume 82.6 fL (80.0-100.0); Mean Platelet Volume 8.4 fL (7.0-11.0); Mono # (Auto) 0.7 th/mm3 (0.0-0.9); Mono % (Auto) 8.5 % (0.0-8.0); Neut # (Auto) 4.7 th/mm3 (1.8-7.7); Neut % (Auto) 59.2 % (16.0-70.0); Platelet Count 231 th/mm3 (150-450); Red Blood Count 3.68 mil/mm3 (4.00-5.30); Red Cell Distribution Width 15.7 % (11.6-17.2); White Blood Count 7.9 th/mm3 (4.0-11.0)
[2017-11-25] MEDS: Sod Chloride 0.9% Inj 1,000 ML IV.CONT SCH ×2 (08:12→08:13)
--- NOTE | 2017-11-25 08:28 | P.PNIM ---
Subjective Interval history: f/u; urosepsis in no acute distress. looks and feels better today. no fever and denies pain. son at the bedside. d/w the RN. Physical Exam Vital signs: Vital Signs 11/24/17 09:10 11/24/17 12:00 11/24/17 16:00 Temperature 98.5 F 98.1 F Pulse Rate 75 61 Respiratory Rate 20 18 Blood Pressure 164/70 H 121/60 Pulse Oximetry 97 99 96 11/24/17 20:00 11/25/17 00:00 11/25/17 04:00 Temperature 97.6 F 98.2 F 98 F Pulse Rate 65 73 78 Respiratory Rate 19 19 15 Blood Pressure 167/76 H 153/63 H 150/72 H Pulse Oximetry 96 100 100 Intake & Output 11/24/17 11/25/17 11/25/17 18:59 06:59 18:59 Intake Total 1000 / 1000 Balance 1000 / 1000 Weight 56.1 kg Intake: IV 1000 / 1000 NS Inj 1,000 ML @ 100 mls/hr IV 1000 / 1000 .CONT .Q10H [facility] Rx#:[id number] Other: # Voids 6 3 Date of Last Bowel Movement 11/22/17 - Constitutional no acute distress - Routine Respiratory Exam Present: CTA bilaterally - Routine Cardiovascular Exam Present: RRR - Routine Abdominal Exam Present: soft - Routine Extremities Exam Comments: no pedal edema. - Routine Neurological Exam Present: alert, oriented X3 Results - Labs CBC & Chem 7: 11/25/17 04:11 11/25/17 09:05 Laboratory Results - last 24 hr 11/24/17 11/24/17 11/24/17 08:34 12:42 18:10 WBC RBC Hgb Hct MCV MCH MCHC RDW Plt Count MPV Neut % (Auto) Lymph % (Auto) [place] % (Auto) Eos % (Auto) Baso % (Auto) Neut # (Auto) Lymph # (Auto) [place] # (Auto) Eos # (Auto) Baso # (Auto) WBC Differential Differential Comment POC Glucose 182 H 214 H 145 H 11/24/17 11/25/17 11/25/17 21:17 04:11 05:17 WBC 7.9 RBC 3.68 L Hgb 10.1 L Hct 30.4 L MCV 82.6 MCH 27.5 MCHC 33.3 RDW 15.7 Plt Count 231 MPV 8.4 Neut % (Auto) 59.2 Lymph % (Auto) 30.0 [place] % (Auto) 8.5 H Eos % (Auto) 2.0 Baso % (Auto) 0.3 Neut # (Auto) 4.7 Lymph # (Auto) 2.4 [place] # (Auto) 0.7 Eos # (Auto) 0.2 Baso # (Auto) 0.0 WBC Differential . Differential Comment Auto diff final POC Glucose 169 H 124 H Microbiology 11/23/17 22:25 Clean Catch Urine Urine Culture - Preliminary Results Pending 11/23/17 22:05 Blood - Peripheral Aerobic Blood Culture - Preliminary No growth in 1 day 11/23/17 22:05 Blood - Peripheral Anaerobic Blood Culture - Preliminary No growth in 1 day 11/23/17 22:00 Blood - Peripheral Aerobic Blood Culture - Preliminary No growth in 1 day 11/23/17 22:00 Blood - Peripheral Anaerobic Blood Culture - Preliminary No growth in 1 day - Procedures none. Assessment and Plan - Plan 1. sepsis due to UTI- improved. Fever, tachycardia, elevated lactic acid UA consistent with urinary tract infection blood cultures negative- UC pending. continue IV Rocephin Tailor antibiotics once cultures resulted 2. Diabetes mellitus Sliding-scale insulin Monitor blood glucose 3. Hypertension Restart home medications once the home medications verified. Clonidine as needed Discharge Planning: dc planning; home later this evening or in am- awaiting UC. see med list. f/u; pcp. d/w the patient,her son and RN. 30; patient doesn't want to wait for PT evaluation. will dc home with f/u with pcp.
[2017-11-25] MEDS: Heparin - SQ 10,000 UNITS/ML Vial SQ SCH (09:21)
[2017-11-25] MEDS: Senna/Docusate Sodium 8.6/50 MG Tablet PO SCH (09:21)
[2017-11-25 10:25] LABS: Anion Gap 7 meq/L (5-15); Blood Urea Nitrogen 9 mg/dL (7-18); Calcium 9.6 mg/dL (8.5-10.1); Carbon Dioxide 24.1 meq/L (21.0-32.0); Chloride 110 meq/L (98-107); Glomerular Filtration Rate Greater Than 89 mL/min (>89); Glucose,Random 151 mg/dL (74-106); Potassium 3.8 meq/L (3.5-5.1)
[2017-11-25 10:28] LABS: Sodium 141 meq/L (136-145)
[2017-11-25 12:39] VITALS: BP 136/68; PULSE 79; RESP 16; TEMP 98.8; O2SAT 99
== END 2017-11-25 14:09 | disposition home or self-care (01) ==
LOC: NEPE 21:18 → NEDA 23:20 → N06 11-24 00:48
PROVIDERS: ADMIT Internal Medicine; ATTEND Internal Medicine